=== PATIENT | male | born 1950 ===

== ENCOUNTER 2018-01-10 05:31 | Day surgery (SDC) | payer OTHER ==
[2018-01-10] MEDS ORDERED: PERCOCET 5-3251 EACH PO (12:53)
[2018-01-10] MEDS ORDERED: NEURONTIN300 MG PO (12:55)
[2018-01-10] MEDS ORDERED: MIRALAX17 GM PO (12:58)
== END 2018-01-10 14:30 | disposition home or self-care (01) ==
LOC: CIR.AMB 05:31
DX: K40.30 Unilateral inguinal hernia, with obstruction, without gangrene, not specified as recurrent (principal)

== ENCOUNTER 2018-12-26 05:50 | Day surgery (SDC) | payer OTHER ==
[~2018-12-26 05:50] MED LIST: MIRALAX17 GM PO; NEURONTIN300 MG PO; PERCOCET 5-3251 EACH PO
[2018-12-26] MEDS ORDERED: PERCOCET 5-3251 EACH PO (10:54)
[2018-12-26] MEDS ORDERED: NEURONTIN300 MG PO (10:54)
[2018-12-26] MEDS ORDERED: COLACE100 MG PO (10:55)
== END 2018-12-26 12:08 | disposition home or self-care (01) ==
LOC: CIR.AMB 05:50
DX: K40.30 Unilateral inguinal hernia, with obstruction, without gangrene, not specified as recurrent (principal)